=== PATIENT | female | born 1990 ===

== ENCOUNTER 2024-09-24 09:30 | Inpatient (IN) | payer OTHER ==
[~2024-09-24] VITALS: Ht 162.6 cm; Wt 115.7 kg
[2024-09-24] MEDS ORDERED: IRBESARTAN75 MG PO (12:34)
[2024-09-24] MEDS ORDERED: ATIVAN0.5 M1 PO (12:35)
[2024-09-24] MEDS ORDERED: LEXAPRO20 MG PO (12:35)
[2024-09-24] MEDS ORDERED: TRAZODONE HCL50 MG PO (12:37)
[2024-10-01] MEDS ORDERED: levoFLOXacin IN DEXTROSE 5 % 5 MG/ML PIGGYBAG IV ONE (09:00)
[2024-10-01] MEDS ORDERED: BUPIVACAINE HCL 30 ML VIAL IJ ONE (09:00)
[2024-10-01] MEDS ORDERED: CHLORHEXIDINE GLUCONATE 120 ML BOTTLE TOP ONE (09:00)
[2024-10-01] MEDS ORDERED: LIDOCAINE HCL 1%/EPINEPHRINE 20ML VIAL IJ ONE (09:00)
[2024-10-01] MEDS ORDERED: CEFAZOLIN SODIUM 1,000 MG VIAL IV ONE (09:00)
[2024-10-01] MEDS ORDERED: MEPERIDINE HCL 25 MG/ML AMPUL IV ONE ×2 (11:15→13:00)
[2024-10-01] MEDS ORDERED: MORPHINE SULFATE 4 MG/ML CARTRIDGE IV PRN (13:15)
[2024-10-01] MEDS ORDERED: RINGERS SOLUTION,LACTATED 1,000 ML IV SCH (13:15)
[2024-10-01] MEDS ORDERED: ONDANSETRON HCL 2 MG/ML VIAL IV PRN (13:15)
[2024-10-01] MEDS ORDERED: OxyCODONE HCL 5 MG TABLET (ROXICODONE) PO PRN (13:15)
[2024-10-01] MEDS ORDERED: ACETAMINOPHEN 500 MG GEL..CAP PO SCH (14:00)
[2024-10-01 16:00] VITALS: BP 115/69; O2SAT 100
[2024-10-01] MEDS ORDERED: CELECOXIB 200 MG CAPSULE PO SCH (17:00)
[2024-10-01] MEDS ORDERED: POLYETHYLENE GLYCOL 3350 17 GM BLIST.PACK PO SCH (17:00)
[2024-10-01] MEDS ORDERED: HYOSCYAMINE SULFATE 0.125 MG TAB.SUBL SL SCH (17:00)
[2024-10-01] MEDS ORDERED: METOCLOPRAMIDE HCL 5 MG/ML VIAL IV SCH (17:00)
[2024-10-01] MEDS ORDERED: GABAPENTIN 300 MG CAPSULE PO SCH (17:00)
[2024-10-01] MEDS ORDERED: SIMETHICONE 125 MG CAPSULE PO SCH (17:00)
[2024-10-01] MEDS ORDERED: LEVALBUTEROL HCL 0.63 MG/3 ML SOLUTION IH SCH (18:19)
[2024-10-01] MEDS ORDERED: MEPERIDINE HCL/PF 25 MG/ML VIAL IM PRN (18:30)
[2024-10-01] MEDS ORDERED: PROMETHAZINE HCL 25 MG/ML AMPUL IM PRN (18:30)
[2024-10-01] MEDS ORDERED: ENALAPRILAT DIHYDRATE 1.25 MG/ML VIAL IV PRN (18:30)
[2024-10-01] MEDS ORDERED: FAMOTIDINE/PF 20 MG/2 ML VIAL IV PUSH SCH (21:00)
[2024-10-02 00:10] VITALS: BP 110/72; O2SAT 100
[2024-10-02 06:52] LABS: HEMATOCRIT 35.9 % (36.0-45.00); HEMOGLOBIN 12.1 g/dL (12.0-15.00); MEAN CELL VOLUME 74.2 fL (80.00-100.00); MEAN CORPUSCULAR HEMOGLOBIN 24.9 pg (27.00-32.0); MEAN CORPUSCULAR HGB CONC 33.6 g/dl (32.0-36.0); PLATELET COUNT 258 K/uL (150-450); RED BLOOD COUNT 4.84 M/uL (4.00-6.00); RED CELL DISTRIBUTION WIDTH 15.7 % (11.5-14.5)
[2024-10-02 07:18] LABS: ALBUMIN 2.8 gm/dL (3.4-5.0); CALCIUM 8.5 mg/dL (8.5-10.1); CREATININE SERUM 0.46 mg/dL (0.55-1.02); GFR 155.5; PHOSPHOROUS 2.6 mg/dL (2.5-4.9); POTASSIUM 4.09 mEq/L (3.5-5.1)
[2024-10-02 08:10] VITALS: BP 114/75; O2SAT 96
[2024-10-02] MEDS ORDERED: LACTULOSE 20 G/30 ML BLIST.PACK PO SCH (09:00)
[2024-10-02] MEDS ORDERED: IRBESARTAN 75 MG TABLET PO SCH (09:00)
[2024-10-02] MEDS ORDERED: LACTOBACILLUS ACIDOPHILUS 1 CAP CAP PO SCH (09:00)
[2024-10-02] MEDS ORDERED: MEPERIDINE HCL/PF 50 MG/ML VIAL IV PRN (10:33)
[2024-10-02] MEDS ORDERED: ENOXAPARIN SODIUM 40 MG/0.4 ML SYRINGE SUBCUTANEO SCH (17:00)
[2024-10-02 17:55] VITALS: BP 107/71; O2SAT 94
[2024-10-02] MEDS ORDERED: LEXAPRO 5 MG PO SCH (21:00)
[2024-10-02] MEDS ORDERED: TRAZODONE HCL 50 MG TABLET PO SCH (21:00)
[2024-10-02 23:00] VITALS: BP 149/94; O2SAT 95
[2024-10-03 00:40] VITALS: BP 101/64; O2SAT 97
[2024-10-03 06:50] LABS: HEMATOCRIT 35.3 % (36.0-45.00); HEMOGLOBIN 11.8 g/dL (12.0-15.00); MEAN CELL VOLUME 75.9 fL (80.00-100.00); MEAN CORPUSCULAR HEMOGLOBIN 25.4 pg (27.00-32.0); MEAN CORPUSCULAR HGB CONC 33.4 g/dl (32.0-36.0); PLATELET COUNT 263 K/uL (150-450); RED BLOOD COUNT 4.65 M/uL (4.00-6.00); RED CELL DISTRIBUTION WIDTH 15.5 % (11.5-14.5)
[2024-10-03 07:36] LABS: CALCIUM 8.6 mg/dL (8.5-10.1); CREATININE SERUM 0.59 mg/dL (0.55-1.02); GFR 116.68; MAGNESIUM 2.1 mg/dL (1.8-2.4); PHOSPHOROUS 2.8 mg/dL (2.5-4.9); POTASSIUM 3.75 mEq/L (3.5-5.1)
[2024-10-03 08:20] VITALS: BP 92/60; O2SAT 96
[2024-10-03] MEDS ORDERED: ENOXAPARIN SODIUM 40 MG/0.4 ML SYRINGE SUBCUTANEO SCH (09:00)
[2024-10-03 16:00] VITALS: BP 122/80; O2SAT 95
[2024-10-04] VITALS: BP 122/79; O2SAT 96
[2024-10-04] MEDS ORDERED: DIPHENHYDRAMINE HCL 50 MG/ML VIAL 1ML IV ONE (08:15)
[2024-10-04 16:00] VITALS: BP 123/74; O2SAT 95
== END 2024-10-04 20:27 | disposition home or self-care (01) | DRG 330 ==
LOC: O/R 10-01 05:00 → SURH 10-01 05:00
PROVIDERS: Internal Medicine Geriatric Medicine; ADMIT Colon & Rectal Surgery; ATTEND Colon & Rectal Surgery
PROC: 0DBP4ZZ Excision of Rectum, Percutaneous Endoscopic Approach (ICD-10-PCS; 2024-10-01)
PROC: 0DXU4ZW Transfer Omentum to Abdominal Region, Percutaneous Endoscopic Approach (ICD-10-PCS; 2024-10-01)
PROC: 0TQB4ZZ Repair Bladder, Percutaneous Endoscopic Approach (ICD-10-PCS; 2024-10-01)
PROC: 0DJD8ZZ Inspection of Lower Intestinal Tract, Via Natural or Artificial Opening Endoscopic (ICD-10-PCS; 2024-10-01)
PROC: 0DTN4ZZ Resection of Sigmoid Colon, Percutaneous Endoscopic Approach (ICD-10-PCS; principal; 2024-10-01 14:00)
PROC: 4A12X4Z Monitoring of Cardiac Electrical Activity, External Approach (ICD-10-PCS; 2024-10-02)
PROC: BW21ZZZ Computerized Tomography (CT Scan) of Abdomen and Pelvis (ICD-10-PCS; 2024-10-03)
DX: K57.20 Diverticulitis of large intestine with perforation and abscess without bleeding (principal); K92.1 Melena; N32.1 Vesicointestinal fistula; R59.0 Localized enlarged lymph nodes; R00.0 Tachycardia, unspecified; I11.9 Hypertensive heart disease without heart failure